=== PATIENT | female | born 1995 | race Caucasian/White ===

== ENCOUNTER 2017-03-08 10:02 | Day surgery (SDC) | payer MEDICAID ==
[~2017-03-08] VITALS: Ht 160 cm; Wt 76.7 kg
[~2017-03-08 10:02] MED LIST: ACETAMINOPHEN INTRAVENOUS 100 ML IV ONE; BUPIVACAINE-EPI 0.25%-1:200000 MPF 30 ML VIAL. ONE; HYDROmorphone 2 MG/ML VIAL IV PRN; LIDOCAINE 1% 1 ML SYRINGE. ID PRN; LIDOCAINE 2% 100 MG/5 ML SYRINGE. ONE; MORPHINE SULFATE 2 MG/ML DISP.SYRIN. IV PRN; ONDANSETRON PF 4 MG/2 ML VIAL. IV PRN; PROCHLORPERAZINE 10 MG/2 ML VIAL. IV PRN; PROPOFOL 100 ML IV ONE; ROCURONIUM 50 MG/5 ML VIAL. ONE; SUCCINYLCHOLINE 200 MG/10 ML VIAL. ONE; fentaNYL PF VIAL 100 MCG/2 ML VIAL IV PRN; fentaNYL PF VIAL 100 MCG/2 ML VIAL ONE
[2017-03-08] MEDS ORDERED: ONDA4TAB12 PO (10:20)
[2017-03-08] MEDS: IV RINGERS,LACTATED 1000ML 1,000 ML IV SCH ×2 (10:29→12:35)
[2017-03-08] MEDS ORDERED: ACETAMINOPHEN INTRAVENOUS 100 ML IV ONE (10:33)
[2017-03-08 11:08] LABS: NEG OBC UR NEG; POS OBC UR POS
[2017-03-08] MEDS ORDERED: FAMOTIDINE 20 MG/2 ML VIAL ONE (11:08)
[2017-03-08] MEDS ORDERED: ONDANSETRON PF 4 MG/2 ML VIAL. ONE ×2 (11:08→11:29)
[2017-03-08] MEDS ORDERED: DEXAMETHASONE SOD PHOS 20 MG/5 ML VIAL. ONE (11:19)
[2017-03-08] MEDS ORDERED: fentaNYL PF VIAL 100 MCG/2 ML VIAL ONE (11:27)
[2017-03-08] MEDS ORDERED: GLYCOPYRROLATE 1 MG/5 ML VIAL. ONE (11:29)
[2017-03-08] MEDS ORDERED: NEOSTIGMINE METHYLSULFATE 5 MG/5 ML SYRINGE. ONE (11:29)
[2017-03-08] MEDS ORDERED: DESFLURANE 31 TO 60 MINUTES IH ONE (11:50)
--- NOTE | 2017-03-08 12:03 | PDOC ---
BRIEF OPERATIVE NOTE Date: March 08, 2017 Pre-Op Diagnosis Incarcerated umbilical hernia Post-Op Diagnosis Same Procedure Performed Robotic assisted L/S umbilical hernia repair Surgeon Roque Anesthesia Type: General Blood Loss 5ml Specimens Obtained None Findings as above Complications None WILDER SHARMA MD March 08, 2017 12:03
--- NOTE | 2017-03-08 12:04 | DISCH ---
DISCHARGE INSTRUCTIONS Condition on Discharge Condition on Discharge: Stable Activity After Discharge Activity Instructions for Disc: Avoid exertion Other activity instructions: No lifting >20lbs for 2 weeks Diet after Discharge Diet after Discharge: Regular Wound Incision Care Other wound/incision instructi: Cecelia shower in 24 hours Contacting the after DC Call your doctor for: If your condition worsens Follow-Up Follow up with: Dr Sharma in 2 weeks WILDER SHARMA MD March 08, 2017 12:04
[2017-03-08] MEDS: fentaNYL PF VIAL 100 MCG/2 ML VIAL IV PRN ×2 (12:35→12:46)
[2017-03-08] MEDS ORDERED: HYDROCODONE/APAP 5/325MG TABLET. PO ONE (13:00)
[2017-03-08 13:29] VITALS: BP 114/56
--- NOTE | 2017-03-08 13:43 | OP ---
DATE OF SURGERY: 03/08/2017 PREOPERATIVE DIAGNOSIS: Incarcerated umbilical hernia. POSTOPERATIVE DIAGNOSIS: Incarcerated umbilical hernia. PROCEDURE: Robotic-assisted laparoscopic umbilical hernia repair. SURGEON: Garett Sharma M.D. INDICATIONS: The patient is a 21-year-old female who has had recently delivered a baby and is having some pain at the umbilicus. CT scan was done, which showed incarcerated umbilical hernia. Procedure of robotic-assisted laparoscopic hernia repair was explained to the patient in detail. Risks and benefits were also discussed including bleeding, infection, injury to intra-abdominal contents, and possibly sustaining further open operations. Alternatives of this procedure were also discussed with the patient who seemed to understand and gave verbal and written consent to have the procedure performed. DESCRIPTION OF PROCEDURE: The patient was taken to the Operating Room and placed in the supine position. General anesthesia was initiated. Once the patient was asleep and intubated, her abdomen was prepped and draped in usual sterile fashion using ChloraPrep. An area in the left upper quadrant was injected with 0.25% Marcaine with epinephrine. Incision was made with an 11-blade scalpel, and a 5-mm Visiport was placed under direct visualization. Pneumoperitoneum was achieved. Once this was complete, abdomen was inspected. It did show a small umbilical hernia with incarcerated fat. At this point, three da Edmund ports were placed under direct visualization, one in the left lower abdomen and one in the left mid abdomen, and a 5-mm port was changed out for da Edmund port. At this point, the da Edmund robot was brought in and docked to all ports. Thirty-degree up camera was placed, and the surgeon went to the surgical console. Using EndoShears scissors and electrocautery, the hernia contents were reduced exposing a small hernia defect. This was closed with a running 2-0 V-Loc nonabsorbable suture as the patient did not want mesh. Once this was complete, suture was removed. The robot was undocked. All ports were removed. The skin incisions were all closed with 4-0 subcuticular Monocryl. Mastisol, Steri-Strips, and Ioban dressings were applied. The patient was awakened, extubated in the operating room, and taken to recovery in stable condition. All sponge and instrument counts were listed as correct. Estimated blood loss was 5 mL. GARETT SHARMA MD DR: Rocco JOB#: [id number] / [id number]
== END 2017-03-08 13:55 | disposition home or self-care (01) ==
LOC: SURG 10:02
PROVIDERS: ATTEND Surgery
DX: K42.0 Umbilical hernia with obstruction, without gangrene (principal); Z87.09 Personal history of other diseases of the respiratory system; Z72.0 Tobacco use; Z87.891 Personal history of nicotine dependence
CPT/HCPCS: 49653; 81025; J0131; J0330; J0780; J1100; J2405; J2704; J2710; J3010; J3490; S0028; S2900